=== PATIENT | female | born 1975 | race African-American/Black ===

== ENCOUNTER 2023-05-05 22:49 | Emergency (ER) | payer OTHER ==
[~2023-05-05] VITALS: Ht 160 cm; Wt 96.1 kg
[2023-05-06] MEDS ORDERED: HYDROcodone-ACET 5/325MG TAB PO ONE (01:15)
[2023-05-06] MEDS ORDERED: IBUP1TAB5 PO (01:19)
[2023-05-06] MEDS ORDERED: CYCL-611 PO (01:19)
[2023-05-06 07:59] VITALS: BP 136/96; PULSE 101; RESP 20; TEMP 97.9; O2SAT 100
== END 2023-05-06 01:14 | disposition home or self-care (01) ==
LOC: ER 22:49
DX: S13.8XXA Sprain of joints and ligaments of other parts of neck, initial encounter (principal); S43.492A Other sprain of left shoulder joint, initial encounter; S73.192A Other sprain of left hip, initial encounter; S00.03XA Contusion of scalp, initial encounter; M50.322 Other cervical disc degeneration at C5-C6 level; M62.838 Other muscle spasm; Z88.8 Allergy status to other drugs, medicaments and biological substances; V79.9XXA Bus occupant (driver) (passenger) injured in unspecified traffic accident, initial encounter; Y93.I9 Activity, other involving external motion; Y92.89 Other specified places as the place of occurrence of the external cause; Y99.8 Other external cause status
CPT/HCPCS: 70450; 72125; 73030; 73502